=== PATIENT | female | born 2000 | race Two or more races ===

== ENCOUNTER 2022-02-02 11:20 | Emergency (ER) | payer OTHER ==
[2022-02-02 11:58] VITALS: BP 122/76
[2022-02-02] MEDS ORDERED: PRED20TA2 PO (12:53)
[2022-02-02] MEDS ORDERED: AMOX-277 PO (12:53)
== END 2022-02-02 14:31 | disposition home or self-care (01) ==
LOC: ER 11:20
DX: J20.9 Acute bronchitis, unspecified (principal); J45.909 Unspecified asthma, uncomplicated; Z20.822 Contact with and (suspected) exposure to COVID-19
CPT/HCPCS: 36415; 71045